=== PATIENT | male | born 1970 | race Caucasian/White ===

== ENCOUNTER 2019-07-22 22:05 | Emergency (ER) | payer MEDICAID ==
[~2019-07-22] VITALS: Ht 177.8 cm; Wt 90.0 kg
[2019-07-23] MEDS ORDERED: ACETAMINOPHEN 325MG TABLET PO SCH (00:15)
[2019-07-23] MEDS ORDERED: DOXYCYCLINE HYCLATE 100MG CAPSULE PO ONE (00:30)
[2019-07-23] MEDS ORDERED: BACITRACIN ZINC OINT UDPKT TOP ONE (00:30)
[2019-07-23] MEDS ORDERED: TETANUS, DIPHTHERIA, PERTUSSIS VAC/PF 0.5ML (>7YR OLD) IM ONE (00:30)
[2019-07-23 01:14] VITALS: BP 106/64
== END 2019-07-23 01:22 | disposition home or self-care (01) ==
LOC: ER 22:05
DX: S61.451A Open bite of right hand, initial encounter (principal); W54.0XXA Bitten by dog, initial encounter; Y93.89 Activity, other specified; Y92.480 Sidewalk as the place of occurrence of the external cause; R03.0 Elevated blood-pressure reading, without diagnosis of hypertension; Z23 Encounter for immunization
CPT/HCPCS: 73130; 90471; 90715; 99284